=== PATIENT | female | born 1950 | race Caucasian/White ===

== ENCOUNTER 2024-01-27 01:17 | Day surgery (SDC) | payer MEDICARE, OTHER, SELFPAY ==
[2023-12-25 13:22] VITALS: BMI 20.5
[2024-01-15 13:26] VITALS: BMI 20.5
[2024-01-27 08:51] VITALS: BP 144/77; PULSE 64; RESP 17; TEMP 36; O2SAT 100; BMI 20.6
[2024-01-27] MEDS: LACTATED RINGERS 1,000 ML 150 ML IV CONT (09:00)
--- NOTE | 2024-01-27 10:07 | P.PNAN_ITS ---
Anes - Initial Pre Proc Eval Procedure: Operation Date: 01/27/24 09:30 Proposed Procedures p Colonoscopy - Renard Jackson MD Date/Time: 01/27/24 10:07 Surgeon: Renard Jackson MD Pre Op Diagnosis: personal history of colon polyps Patient Data Age: 73 Gender: F Height: 1.65 m Weight: 56.3 kg Last Vital Signs Temp 36.0 C L 01/27/24 08:51 Pulse 64 01/27/24 08:51 Resp 17 01/27/24 08:51 BP 144/77 H 01/27/24 08:51 Pulse Ox 100 01/27/24 08:51 O2 Del Method Room Air 01/27/24 08:51 Allergies Allergy/AdvReac Type Severity Reaction Status Date / Time amitriptyline [From Elavil] Allergy Hypotension Verified 01/27/24 08:47 hydrocodone AdvReac Headache Verified 01/27/24 08:47 Home Medications Medication Instructions Recorded Confirmed Type amlodipine 2.5 mg tablet 2.5 mg PO DAILY 12/25/23 01/27/24 History ezetimibe 10 mg tablet 10 mg PO DAILY 12/25/23 01/27/24 History letrozole 2.5 mg tablet 2.5 mg PO DAILY 12/25/23 01/27/24 History nitroglycerin 0.4 mg sublingual 0.4 mg sublingual DIRECTED PRN 12/25/23 01/27/24 History tablet Chest Pain ramipril 10 mg capsule 10 mg PO DAILY 12/25/23 01/27/24 History rosuvastatin 10 mg tablet 10 mg PO DAILY 12/25/23 01/27/24 History Patient hx anesthesia problems: none Family hx anesthesia problems: none Results Review: All pre-operative results and documents have been reviewed as part of the pre- operative evaluation. [facility] Past Medical History Medical History (Updated 01/26/24 @ 13:59 by Ken Hamilton DO) CAD (coronary artery disease) History of left breast cancer 2019 Hyperlipidemia Hypertension ALVARADO (obstructive sleep apnea) CPAP Social History Social History (System 09/20/21 @ 13:50 by Yamila Powers) Smoking status: Never smoker Alcohol intake: never Substance use: never Substance use type: does not use Living arrangements: with family Spiritual care concerns: No Anes - Eval Final PreProcedure Day of Procedure 01/27/24 10:07 Patient weight: normal Heart: regular rate and rhythm Lungs: clear to auscultation and normal air movement Airway: Mallampati scale class II Neurological: alert and oriented Last oral intake: >/= 8 hours ASA classification: III Emergent: no Anesthetic plan: proceed Anesthesia type and monitoring: general GIVS and standard monitoring Results Review: All pre-operative results and documents have been reviewed as part of the pre- operative evaluation. Informed Consent: The patient's anesthetic plan and its attendant risks and benefits were discussed with the patient/family/POA. Questions were solicited and answers provided to the satisfaction of the patient/family/POA.
--- NOTE | 2024-01-27 10:25 | PM.IMHP ---
H&P: HPI History of Present Illness Date/Time: 01/27/24 10:25 Chief Complaint: History of polyps Narrative: The patient has a history of colonic polyps, the last colonoscopy was 5 years ago Review of Systems Review of Systems: All systems reviewed & are unremarkable except as noted in HPI and below PMFSH Past Medical History Medical History (Updated 01/27/24 @ 10:26 by Renard Jackson MD) CAD (coronary artery disease) History of left breast cancer 2019 Hyperlipidemia Hypertension ALVARADO (obstructive sleep apnea) CPAP Social History Social History (System 09/20/21 @ 13:50 by Yamila Powers) Smoking status: Never smoker Alcohol intake: never Substance use: never Substance use type: does not use Living arrangements: with family Spiritual care concerns: No Meds Home Medications and Allergies Home Medications Medication Instructions Recorded Confirmed Type amlodipine 2.5 mg tablet 2.5 mg PO DAILY 12/25/23 01/27/24 History ezetimibe 10 mg tablet 10 mg PO DAILY 12/25/23 01/27/24 History letrozole 2.5 mg tablet 2.5 mg PO DAILY 12/25/23 01/27/24 History nitroglycerin 0.4 mg sublingual 0.4 mg sublingual DIRECTED PRN 12/25/23 01/27/24 History tablet Chest Pain ramipril 10 mg capsule 10 mg PO DAILY 12/25/23 01/27/24 History rosuvastatin 10 mg tablet 10 mg PO DAILY 12/25/23 01/27/24 History Allergies Allergy/AdvReac Type Severity Reaction Status Date / Time amitriptyline [From Elavil] Allergy Hypotension Verified 01/27/24 08:47 hydrocodone AdvReac Headache Verified 01/27/24 08:47 Vital Signs Vital Signs - 24 hr 01/27/24 08:51 Temperature 96.8 F L Pulse Rate 64 Respiratory Rate 17 Blood Pressure 144/77 H Pulse Oximetry 100 Oxygen Delivery Room Air Exam Const: General: cooperative and healthy appearing Resp: Effort & Inspection: normal respiratory effort and able to speak in complete sentences Auscultation: clear to auscultation bilaterally Cardio: Rate: regular rate Rhythm: regular rhythm GI: Inspection: normal to inspection GI Palp: No No hepatosplenomegaly present Auscultation: normal bowel sounds Rectal Exam: deferred Skin: General skin exam: normal color Psych: Appearance: grossly normal Mental Status: mental status grossly normal Assessment and Plan Assessment and plan (1) History of colonic polyps: Code(s): Z86.0100 - Personal history of colon polyps, unspecified Status: Acute Assessment and Plan: The patient is deemed a good candidate for the procedure. Consent signed. Will proceed.
[2024-01-27 10:50] VITALS: BP 84/49; PULSE 54; RESP 20; O2SAT 100
[2024-01-27 11:00] VITALS: BP 90/52; PULSE 62; RESP 19; O2SAT 98
[2024-01-27 11:10] VITALS: BP 121/87; PULSE 57; RESP 19; O2SAT 100
== END 2024-01-27 11:28 | disposition home or self-care (01) ==
PROVIDERS: PCP Family Medicine; Visit Provider Internal Medicine Gastroenterology
PROC: 0DJD8ZZ Inspection of Lower Intestinal Tract, Via Natural or Artificial Opening Endoscopic (ICD-10-PCS; CPT 45378; principal; 2024-01-27 09:30)
DX: Z12.11 Encounter for screening for malignant neoplasm of colon (principal); K57.30 Diverticulosis of large intestine without perforation or abscess without bleeding; E78.5 Hyperlipidemia, unspecified; I10 Essential (primary) hypertension; G47.33 Obstructive sleep apnea (adult) (pediatric); I25.10 Atherosclerotic heart disease of native coronary artery without angina pectoris; Z99.89 Dependence on other enabling machines and devices; Z86.0100 Personal history of colon polyps, unspecified; Z86.79 Personal history of other diseases of the circulatory system; Z85.3 Personal history of malignant neoplasm of breast
CPT/HCPCS: G0105; J2003; J2704; J7120

== ENCOUNTER 2024-02-11 13:11 | Outpatient (CLI) | payer MEDICARE, OTHER, SELFPAY ==
--- NOTE | ~2024-02-11 | US_ITS ---
EXAMINATION: US abdomen complete DATE: 02/11/2024 13:47 INDICATION: Right upper quadrant abdominal pain. TECHNIQUE: Multiple grayscale and Doppler ultrasound images of the abdomen were obtained. COMPARISON: None FINDINGS: Abdominal aorta is normal in caliber. Inferior vena cava is normal. The visualized portions of the head and body of the pancreas are normal. The liver is normal without focal lesion. There is normal flow in main portal vein. The gallbladder is normal in size. No gallstones or gallbladder wall thickening. There is no sonographic Westbrook's sign. The common duct is normal and measures 5 mm. The kidneys are normal in size. There is a 2.3 cm cyst of right kidney. The spleen is normal in size. IMPRESSION: 1. No etiology for the patient's symptoms. Reviewed, dictated and finalized at location A. [employer]
== END 2024-02-11 13:12 | disposition home or self-care (01) ==
LOC: MICIMG 13:13
PROVIDERS: PCP Family Medicine; Visit Provider Family Medicine
DX: R10.11 Right upper quadrant pain (principal)
CPT/HCPCS: 76700